=== PATIENT | female | born 1990 | race Caucasian/White ===

== ENCOUNTER → 2017-01-18 | Outpatient (CLI) | payer BC ==
[~2017-01-18] MED LIST: DOXYCYCLINE100 MG PO; METHERGINE0.2 MG PO; MOTRIN800 MG PO; NKHM; PERCOCET 325 MG1 TA2 PO
== END | disposition home or self-care (01) ==
LOC: US 13:00
DX: N76.0 Acute vaginitis (principal); N94.10 Unspecified dyspareunia; N93.9 Abnormal uterine and vaginal bleeding, unspecified